=== PATIENT | male | born 2000 | race Caucasian/White ===

== ENCOUNTER 2020-06-25 14:39 | Outpatient (REF) | payer BC, SELFPAY ==
[2020-06-25 15:16] LABS: MANUAL DIFF FLAG NO
[2020-06-25 15:25] LABS: Basophils Percent Auto 0.4 % (0-2); Eosinophils Absolute Auto 0.2 X10*3/uL (0.0-0.4); Eosinophils Percent Auto 3.1 % (0-4); Hematocrit 40.8 % (42-52); Hemoglobin 13.6 g/dl (14.0-18.0); Imm Gran Abs Auto 0.01 X10*3/uL (0.00-0.03); Imm Gran Pct Auto 0.2 % (0.0-0.4); Lymphocytes Absolute Auto 1.7 X10*3/uL (1.2-4.9); Lymphocytes Percent Auto 31.4 % (20-40); Mean Corpuscular HGB Conc 33.3 g/dl (31.0-36.0); Mean Corpuscular Hemoglobin 30.6 pg (27.0-33.0); Mean Corpuscular Volume 91.7 fL (80-98); Mean Platelet Volume 11.4 fL (9.4-12.4); Monocytes Absolute Auto 0.4 X10*3/uL (0.1-1.2); Monocytes Percent Auto 7.3 % (2-11); Neutrophils Absolute Auto 3.2 X10*3/uL (2.0-8.3); Neutrophils Percent Auto 57.6 % (45-73); Platelet Count 211 X10*3/uL (160-400); Red Blood Count 4.45 X10*6/uL (4.60-5.80); Red Cell Distribution Width 11.7 % (11.0-16.0); White Blood Count 5.5 X10*3/uL (4.8-10.8)
[2020-06-25 16:14] LABS: Free T4 (Free Thyroxine) 0.85 ng/dL (0.71-1.85); Prostate Specific Antigen 0.49 ng/mL (<0.05-4.0); Thyroid Stimulating Hormone 0.86 uIU/mL (0.32-4.0)
== END 2020-06-25 14:40 | disposition home or self-care (01) ==
LOC: HO.LAB 14:39
PROVIDERS: PCP Pediatrics; Visit Provider Nurse Practitioner Family
DX: L64.8 Other androgenic alopecia (principal); Z12.5 Encounter for screening for malignant neoplasm of prostate
CPT/HCPCS: 36415; 84153; 84439; 84443; 85025

== ENCOUNTER 2020-07-12 15:34 | Outpatient (REF) | payer BC, SELFPAY ==
[2020-07-12 17:10] LABS: Iron 102 mcg/dL (45-160); Percent Iron Saturation 30 % (15-50); Total Iron Binding Capacity 339 mcg/dL (228-428); Unsaturated Iron Binding 237 ug/dL
[2020-07-12 17:29] LABS: Ferritin 33 ng/mL (20-250)
== END 2020-07-12 15:35 | disposition home or self-care (01) ==
LOC: HO.LAB 15:34
PROVIDERS: PCP Pediatrics; Visit Provider Nurse Practitioner Family
DX: R71.8 Other abnormality of red blood cells (principal)
CPT/HCPCS: 36415; 82728; 83540

== ENCOUNTER 2021-04-10 16:21 | Outpatient (REF) | payer BC, SELFPAY ==
[2021-04-10 17:12] LABS: Influenza A PCR POSITIVE (Negative); Influenza B PCR NEGATIVE (Negative); Resp Syncy Virus RNA Qual PCR NEGATIVE (Negative); SARS COV2 PCR INHOUSE NEGATIVE (Negative)
== END 2021-04-10 16:22 | disposition home or self-care (01) ==
LOC: HO.LAB 16:21
PROVIDERS: Visit Provider Internal Medicine
DX: Z20.822 Contact with and (suspected) exposure to COVID-19 (principal)
CPT/HCPCS: 0241U